=== PATIENT | female | born 1985 | race Caucasian/White ===

== ENCOUNTER 2016-09-28 14:03 | Emergency (ER) | payer OTHER ==
[2016-09-28 15:13] VITALS: BP 132/77
--- NOTE | 2016-09-28 17:28 | UC ---
UC General HPI - HPI Summary HPI Summary: ONE WEEK COLD SYMPTOMS HAD STOMACH BUG, NOW FEELING CONGESTION, MILD COUGH AND OCCASIONAL NAUSEA. - History of Current Complaint Chief Complaint: UCRespiratory Stated Complaint: SORE THROAT NAUSEA CONGESTION Time Seen by Provider: 09/28/16 14:58 Hx Obtained From: Patient Onset/Duration: Lasting Weeks, Still Present Onset Severity: Moderate Current Severity: Moderate Pain Intensity: 8 Associated Signs & Symptoms: Positive: Cough, Nausea - Allergy/Home Medications Allergies/Adverse Reactions: Allergies Allergy/AdvReac Type Severity Reaction Status Date / Time Sulfa Antibiotics Allergy FACES Verified 09/28/16 15:13 SWELLS UP PMH/Surg Hx/FS Hx/Imm Hx Previously Healthy: Yes Endocrine History Of: Denies: Diabetes, Thyroid Disease Cardiovascular History Of: Denies: Cardiac Disorders, Hypertension, Pacemaker/ICD Respiratory History Of: Denies: COPD, Asthma GI/ History Of: Denies: Ulcer, Renal Disease Neurological History Of: Reports: Migraine - ost neck injury Jun 2011 - Surgical History Surgical History: Yes Surgery Procedure, Year, and Place: Tonsillectomy - Family History Known Family History: Positive: None Negative: Respiratory Disease - Social History Occupation: Employed Full-time Lives: With Family Alcohol Use: None Substance Use Type: None Smoking Status (MU): Former Smoker Type: Cigarettes Amount Used/How Often: 1/2 PPD Have You Smoked in the Last Year: Yes Review of Systems Constitutional: Negative Skin: Negative Eyes: Negative ENT: Sore Throat, Ear Ache, Nasal Discharge Respiratory: Cough Cardiovascular: Negative Gastrointestinal: Other - NAUSEA Genitourinary: Negative Motor: Negative Neurovascular: Negative Musculoskeletal: Negative Neurological: Negative Psychological: Negative All Other Systems Reviewed And Are Negative: Yes Physical Exam Triage Information Reviewed: Yes Appearance: No Pain Distress, Well-Nourished, Ill-Appearing - MILD Vital Signs: Initial Vital Signs Temp 98.5 F 09/28/16 15:07 Pulse 88 09/28/16 15:07 Resp 20 09/28/16 15:07 BP 132/77 09/28/16 15:07 Pulse Ox 98 09/28/16 15:07 Vital Signs Reviewed: Yes Eye Exam: Normal Eyes: Positive: Conjunctiva Clear ENT: Positive: Hearing grossly normal, TMs normal Dental Exam: Normal Neck exam: Normal Neck: Positive: Supple, Nontender, No Lymphadenopathy Respiratory Exam: Normal Respiratory: Positive: Chest non-tender, Lungs clear, Normal breath sounds, No respiratory distress, No accessory muscle use Cardiovascular Exam: Normal Cardiovascular: Positive: RRR, No Murmur, Pulses Normal, Brisk Capillary Refill Abdominal Exam: Normal Abdomen Description: Positive: Nontender, No Organomegaly Musculoskeletal Exam: Normal Musculoskeletal: Positive: Strength Intact, ROM Intact Neurological Exam: Normal Psychological Exam: Normal Skin Exam: Normal Course/Dx - Differential Dx - Multi-Symptom Differential Diagnoses: Urinary Tract Infection, Other - INFLUENZA Provider Diagnoses: GASTROENTERITIS Discharge - Discharge Plan Condition: Stable Disposition: HOME Prescriptions: Ondansetron ODT TAB* [Zofran Odt TAB*] 4 mg PO Q8H PRN #6 tab.odt PRN Reason: Vomiting Patient Education Materials: Gastroenteritis (ED) Forms: *Work Release Referrals: Sandra New PA [Primary Care Provider] -
== END 2016-09-28 17:10 | disposition home or self-care (01) ==
LOC: UCEAST 14:03
DX: K52.9 Noninfective gastroenteritis and colitis, unspecified (principal); R11.0 Nausea; Z32.02 Encounter for pregnancy test, result negative; Z88.2 Allergy status to sulfonamides; Z87.891 Personal history of nicotine dependence
CPT/HCPCS: 81002; 81025; 87086; 87502; 99212; G0463

== ENCOUNTER 2016-11-18 19:07 | Emergency (ER) | payer OTHER ==
--- NOTE | 2016-11-18 21:14 | UC ---
UC Dental HPI - HPI Summary HPI Summary: complaint of dental pain tooth in left upper jaw is painful this afternoon the pain increased and her cheek started to swell has appt to have teeth pulled 11/23/16 denies fever and headache took some ibuprofen at 6:30-600 mg without relief - History of Current Complaint Chief Complaint: UCDentalProblem Stated Complaint: TOOTH PAIN Time Seen by Provider: 11/18/16 21:09 Hx Obtained From: Patient Hx Last Menstrual Period: nexplanon - does not get menses - Allergies/Home Medications Allergies/Adverse Reactions: Allergies Allergy/AdvReac Type Severity Reaction Status Date / Time Sulfa Antibiotics Allergy FACES Verified 09/28/16 15:13 SWELLS UP Home Medications: Home Medications Ibuprofen [Advil] 600 mg PO 11/18/16 [History] PMH/Surg Hx/FS Hx/Imm Hx Previously Healthy: Yes Endocrine History Of: Denies: Diabetes, Thyroid Disease Cardiovascular History Of: Denies: Cardiac Disorders, Hypertension, Pacemaker/ICD Respiratory History Of: Denies: COPD, Asthma GI/ History Of: Denies: Ulcer, Renal Disease Neurological History Of: Reports: Migraine - ost neck injury Jun 2011 - Surgical History Surgical History: Yes Surgery Procedure, Year, and Place: Tonsillectomy - Family History Known Family History: Positive: None Negative: Cardiac Disease, Hypertension, Respiratory Disease - Social History Lives: With Family Alcohol Use: None Substance Use Type: None Smoking Status (MU): Light Every Day Tobacco Smoker Type: Cigarettes Amount Used/How Often: 1/2 PPD Have You Smoked in the Last Year: Yes Cessation Counseling: Patient Advised to Stop Review of Systems Constitutional: Negative Skin: Negative Eyes: Negative ENT: Dental Pain Respiratory: Negative Cardiovascular: Negative Gastrointestinal: Negative Genitourinary: Negative Motor: Negative Neurovascular: Negative Musculoskeletal: Negative Neurological: Negative Psychological: Negative All Other Systems Reviewed And Are Negative: Yes Physical Exam Triage Information Reviewed: Yes Appearance: Well-Nourished, Pain Distress, Obese Vital Signs: Initial Vital Signs Temp 98.7 F 11/18/16 19:48 Pulse 98 11/18/16 19:48 Resp 18 11/18/16 19:48 BP 126/80 11/18/16 19:48 Pulse Ox 100 11/18/16 19:48 Vital Signs Reviewed: Yes Eyes: Positive: Conjunctiva Clear ENT: Positive: Pharynx normal, TMs normal. Negative: Nasal congestion Dental: Positive: Gross Decay/Caries @ - throughout, Abscess @ - tooth 10 Neck: Positive: No Lymphadenopathy Respiratory: Positive: Lungs clear, Normal breath sounds, No respiratory distress Cardiovascular: Positive: RRR, No Murmur Abdomen Description: Positive: Nontender, Soft Bowel Sounds: Positive: Present Musculoskeletal: Positive: No Edema Neurological: Positive: Alert Psychological Exam: Normal Skin Exam: Normal Dental Complaint Course/Dx - Differential Dx/Diagnosis Differential Diagnosis/Dx: Dental Abscess, Dental Caries Provider Diagnoses: dental abscess- tooth 10 Discharge - Discharge Plan Condition: Stable Disposition: HOME Prescriptions: Amoxicillin/Clavulanate TAB* [Augmentin TAB 875*] 875 mg PO BID #20 tab Patient Education Materials: Dental Abscess (ED) Referrals: Sandra New PA [Primary Care Provider] - Additional Instructions: Your blood pressure is pre-hypertensive reading. Please contact your primary care provider within 1 day -4 weeks for further evaluation. DENTAL ABSCESS What is a Dental Abscess? A dental abscess is an infection around the root of a tooth or in the gums or jawbone. The infection causes pus to collect, and a lump can appear. Dental abscesses often get their start when bacteria invade a decayed tooth; the decay may then travel to the gums or jawbone. Decay can also begin in the mouth when teeth are not brushed or flossed properly. Symptoms Might Include: In general, you'll start to have a fever, redness and swelling of the gums or cheek. If you have a lump it may feel hot. Other signs include tooth or mouth pain, a loose tooth, or not being able to close your mouth all the way. If the abscess spreads, your face, neck, or chest may swell. Treatment Recommendations: Rinse your mouth with warm water every hour or as needed to ease the pain. This will help draw the infection from the abscess. For pain, you may take non-prescription medicines such as acetaminophen (Tylenol ) or ibuprofen (Motrin, Advil). To help ease the pain, do not chew on the sore side for at least 2 days; you may need to limit yourself to a liquid diet. Putting ice on your face over the affected area may also relieve the pain. Apply the ice for 10 to 20 minutes out of every hour. Do not leave the ice on for long periods or you can get frostbite. If the abscess is drained, there may be a small hole or drain. Keep the area free of food by rinsing with water after eating. You'll need to return or be seen by a dentist to have the drain removed. The healthcare provider may have prescribed an antibiotic medicine. The medicine should be taken until it is completely gone, even if you are feeling better. If you stop taking the medicine early, the infection may not be completely gone, and the medication may not work the next time. To prevent abscesses: [place] regularly with a toothbrush recommended by your dentist. Floss daily and use a fluoride mouthwash, toothpaste, tablets, or supplements as instructed by your dentist or dental hygienist. Reduce the amount of sugar in your diet. Call Your Doctor or Return Here IF: You have a high temperature Your pain becomes worse You have any new symptoms or problems that may be due to the medicine you are taking You have new or increased swelling in your face, jaw, cheek, eye, or neck You have any other new symptoms that worry you
[2016-11-18] MEDS ORDERED: Amoxicillin/Clavulanate TAB* 875 MG PO ONE (21:16)
[2016-11-18] MEDS ORDERED: HYDROcodone/ACETAMIN 5-325 MG* 1 TAB PO ONE (21:18)
[2016-11-18 21:52] VITALS: BP 134/66
== END 2016-11-18 21:54 | disposition home or self-care (01) ==
LOC: UCEAST 19:07
DX: G43.909 Migraine, unspecified, not intractable, without status migrainosus (principal); K04.7 Periapical abscess without sinus; F17.210 Nicotine dependence, cigarettes, uncomplicated; E66.9 Obesity, unspecified; Z88.2 Allergy status to sulfonamides
CPT/HCPCS: 99212; A9270-GY; G0463

== ENCOUNTER 2017-05-29 21:12 | Emergency (ER) | payer OTHER ==
[2017-05-29 21:18] VITALS: BP 134/88
--- NOTE | 2017-05-29 21:47 | UC ---
Lower Extremity/Ankle HPI - HPI Summary HPI Summary: While walking up the stairs tonight pt felt sudden pop with pain in R posterior calf. Now walking with a limp. No prior injury or surgery on that area. - History of Current Complaint Hx Obtained From: Patient Hx Last Menstrual Period: few years ago ?: No Onset/Duration: Sudden Onset Severity Initially: Moderate Severity Currently: Moderate Aggravating Factor(s): Standing, Ambulation Alleviating Factor(s): Rest Able to Bear Weight: Yes <Aicha Tatum - Last Filed: 05/29/17 21:42> <Meg Estrella - Last Filed: 05/30/17 19:34> - History of Current Complaint Chief Complaint: UCLowerExtremity Stated Complaint: CALF INJURY Time Seen by Provider: 05/29/17 21:24 - Allergies/Home Medications Allergies/Adverse Reactions: Allergies Allergy/AdvReac Type Severity Reaction Status Date / Time Sulfa Antibiotics Allergy FACES Verified 05/29/17 21:19 SWELLS UP Home Medications: Home Medications Varenicline (NF) [Chantix 1 MG TAB (NF)] 1 tab PO BID 05/29/17 [History Confirmed 05/29/17] PMH/Surg Hx/FS Hx/Imm Hx Previously Healthy: Yes - Surgical History Surgical History: Yes Surgery Procedure, Year, and Place: Tonsillectomy - Family History Known Family History: Positive: None Negative: Cardiac Disease, Hypertension, Respiratory Disease - Social History Occupation: Employed Full-time - [employer] – [place] Alcohol Use: None Substance Use Type: None Smoking Status (MU): Light Every Day Tobacco Smoker Type: Cigarettes Amount Used/How Often: 1/2 PPD Have You Smoked in the Last Year: Yes <Aicha Tatum - Last Filed: 05/29/17 21:42> Review of Systems Constitutional: Negative Skin: Negative Eyes: Negative ENT: Negative Respiratory: Negative Cardiovascular: Negative Gastrointestinal: Negative Genitourinary: Negative Motor: Negative Neurovascular: Negative Musculoskeletal: Myalgia - R calf Neurological: Negative Psychological: Negative Is Patient Immunocompromised?: No All Other Systems Reviewed And Are Negative: Yes <Aicha Tatum - Last Filed: 05/29/17 21:42> Physical Exam Triage Information Reviewed: Yes Appearance: Well-Appearing, Obese Vital Signs: Initial Vital Signs Temp 97.5 F 05/29/17 21:16 Pulse 112 05/29/17 21:16 Resp 18 05/29/17 21:16 BP 134/88 05/29/17 21:16 Pulse Ox 99 05/29/17 21:16 Vital Signs Reviewed: Yes Eye Exam: Normal, Other - PERRL Eyes: Positive: Conjunctiva Clear ENT Exam: Normal ENT: Positive: Normal ENT inspection, Hearing grossly normal, Pharynx normal, TMs normal Neck exam: Normal Respiratory Exam: Normal Respiratory: Positive: Chest non-tender, Lungs clear, Normal breath sounds, No respiratory distress, No accessory muscle use Cardiovascular Exam: Normal Cardiovascular: Positive: RRR, No Murmur Musculoskeletal Exam: Other - Rodriguez test negative for achilles injury Musculoskeletal: Positive: ROM Intact - able to do circles with R foot, Strength Limited @ - R calf Neurological Exam: Normal Psychological Exam: Normal Skin Exam: Normal <Aicha Tatum - Last Filed: 05/29/17 21:42> Vital Signs: Initial Vital Signs Temp 97.5 F 05/29/17 21:16 Pulse 112 05/29/17 21:16 Resp 18 05/29/17 21:16 BP 134/88 05/29/17 21:16 Pulse Ox 99 05/29/17 21:16 <Meg Estrella - Last Filed: 05/30/17 19:34> Lower Extremity Course/Dx - Differential Dx/Diagnosis Provider Diagnoses: R calf strain <Aicha Tatum - Last Filed: 05/29/17 21:42> Discharge <Aicha Tatum - Last Filed: 05/29/17 21:42> <Meg Estrella - Last Filed: 05/30/17 19:34> - Discharge Plan Condition: Stable Disposition: HOME Patient Education Materials: Muscle Strain (ED) Forms: *Work Release Referrals: Sandra New PA [Primary Care Provider] - 1 Week Additional Instructions: Use ice, elevation, and ibuprofen as needed for pain control. Use crutches so that you can move around without significant pain. Mostly these injuries need lots of time to heal. Your achilles tendon was intact on exam tonight. I do recommend you see your PCP for a recheck to make sure this is still the case in a week. Attestation Statement User Type: Provider - I was available for consult. This patient was seen by the DESMOND. The patient was not presented to, seen by, or examined by me. -Jane <Meg Estrella - Last Filed: 05/30/17 19:34>
== END 2017-05-29 21:55 | disposition home or self-care (01) ==
LOC: UCEAST 21:12
DX: S86.811A Strain of other muscle(s) and tendon(s) at lower leg level, right leg, initial encounter (principal); F17.210 Nicotine dependence, cigarettes, uncomplicated; Z88.2 Allergy status to sulfonamides; X58.XXXA Exposure to other specified factors, initial encounter
CPT/HCPCS: 99213; G0463

== ENCOUNTER 2017-09-07 21:30 | Emergency (ER) | payer OTHER ==
[2017-09-07 21:37] VITALS: BP 130/91
--- NOTE | 2017-09-07 21:46 | UC ---
Respiratory Complaint HPI - HPI Summary HPI Summary: Pt presents with dry cough and sinus pain/pressure/congestion intermittently since the beginning of july. She tells me that she has been taking dayquill/ nyquill, mucinex, and tylenol cold and flu with good relief at times, but her symptoms will return a few days later. She denies fever, chills, SOB, chest pain , abdominal pain, n/v/d/c, or body aches. She is still smoking daily. - History of Current Complaint Chief Complaint: UCRespiratory Stated Complaint: COUGH Time Seen by Provider: 09/07/17 21:38 Hx Obtained From: Patient Hx Last Menstrual Period: 5 yrs Onset/Duration: Gradual Onset Timing: Intermittent Episodes Pain Intensity: 0 Character: Cough: Nonproductive - Allergies/Home Medications Allergies/Adverse Reactions: Allergies Allergy/AdvReac Type Severity Reaction Status Date / Time Sulfa Antibiotics Allergy FACES Verified 09/07/17 21:37 SWELLS UP PMH/Surg Hx/FS Hx/Imm Hx Previously Healthy: Yes - Surgical History Surgical History: Yes Surgery Procedure, Year, and Place: Tonsillectomy - Family History Known Family History: Positive: None Negative: Cardiac Disease, Hypertension, Respiratory Disease - Social History Occupation: Employed Full-time Lives: Alone Alcohol Use: None Substance Use Type: None Smoking Status (MU): Light Every Day Tobacco Smoker Type: Cigarettes Amount Used/How Often: 1/2 PPD Have You Smoked in the Last Year: Yes Cessation Counseling: Counseled 3+Min - 10 Min Review of Systems Constitutional: Negative Skin: Negative Eyes: Negative ENT: Nasal Discharge, Sinus Congestion, Sinus Pain/Tenderness Respiratory: Cough Cardiovascular: Negative Gastrointestinal: Negative Neurovascular: Negative Musculoskeletal: Negative Neurological: Negative Psychological: Negative All Other Systems Reviewed And Are Negative: Yes Physical Exam Triage Information Reviewed: Yes Appearance: Well-Appearing, No Pain Distress, Well-Nourished Vital Signs: Initial Vital Signs Temp 97.9 F 09/07/17 21:34 Pulse 90 09/07/17 21:34 Resp 12 09/07/17 21:34 BP 130/91 09/07/17 21:34 Pulse Ox 99 09/07/17 21:34 Vital Signs Reviewed: Yes Eyes: Positive: Conjunctiva Clear. Negative: Conjunctiva Inflamed, Discharge ENT: Positive: Hearing grossly normal, Pharynx normal, Nasal congestion, Nasal drainage, TMs normal, Sinus tenderness, Uvula midline. Negative: Pharyngeal erythema, TM bulging, TM dull, TM red, Tonsillar swelling, Tonsillar exudate, Hoarse voice Neck: Positive: Supple, Nontender, No Lymphadenopathy Respiratory: Positive: Chest non-tender, Lungs clear, No respiratory distress, No accessory muscle use, Wheezing - Scant throughout. Negative: Crackles Cardiovascular: Positive: RRR, No Murmur, Pulses Normal Neurological: Positive: Alert Psychological: Positive: Age Appropriate Behavior Skin: Negative: rashes UC Diagnostic Evaluation - Laboratory O2 Sat by Pulse Oximetry: 99 Respiratory Course/Dx - Course Course Of Treatment: Bronchitis. Sinusitis - Differential Dx/Diagnosis Provider Diagnoses: Bronchitis. Sinusitis Discharge - Discharge Plan Condition: Stable Disposition: HOME Prescriptions: Albuterol HFA INHALER* [Ventolin HFA Inhaler*] 1 - 2 puff INH Q6H PRN #1 mdi PRN Reason: Cough Amoxicillin PO (*) [Amoxicillin 500 MG CAP*] 500 mg PO Q12H #20 cap predniSONE TAB* [Deltasone TAB*] 20 mg PO BID #10 tab Patient Education Materials: Sinusitis (ED), Acute Bronchitis (ED) Referrals: Sandra New PA [Primary Care Provider] - Additional Instructions: If you develop a fever, shortness of breath, chest pain, new or worsening symptoms - please call your PCP or go to the ED. Your blood pressure was high at todays visit. Please see your primary provider within 4 weeks for recheck and re-evaluation.
== END 2017-09-07 21:50 | disposition home or self-care (01) ==
LOC: UCEAST 21:30
DX: J40 Bronchitis, not specified as acute or chronic (principal); J32.9 Chronic sinusitis, unspecified; F17.210 Nicotine dependence, cigarettes, uncomplicated; Z88.2 Allergy status to sulfonamides
CPT/HCPCS: 99212; G0463

== ENCOUNTER 2018-02-07 14:11 | Emergency (ER) | payer OTHER ==
[2018-02-07] MEDS ORDERED: Clindamycin 600 MG IVPREMIX(* 600 MG/50 ML SDV IV ONE (14:59)
[2018-02-07] MEDS ORDERED: Morphine VIAL* 4 MG/ML VIAL (1 ml vial) IV ONE ×2 (15:12→17:21)
--- NOTE | 2018-02-07 15:19 | ED ---
Throat Pain/Nasal Congestion - HPI Summary HPI Summary: 32-year-old female presents with right-sided facial pain for the past 3 days. She states that she was having ear pain and then started to radiate down her jaw. She was seen [facility] and given antibiotic drops and amoxicillin. She's been taking the antibiotics but the area swelling is continuing to increase. She denies any dental pain. She is unable to open her mouth all the way. No fevers. No chest pain or shortness of breath. Has ibuprofen for pain. no history of dental infections. - History of Current Complaint Chief Complaint: EDDentalPain Time Seen by Provider: 02/07/18 14:58 - Allergies/Home Medications Allergies/Adverse Reactions: Allergies Allergy/AdvReac Type Severity Reaction Status Date / Time Sulfa (Sulfonamide Allergy Anaphylatic Verified 02/07/18 14:51 Antibiotics) Shock Home Medications: Home Medications Ibuprofen TAB* [Advil TAB*] 200 mg PO Q6H PRN 02/07/18 [History Confirmed ] PMH/Surg Hx/FS Hx/Imm Hx Endocrine/Hematology History: Denies: Hx Diabetes, Hx Thyroid Disease Cardiovascular History: Denies: Hx Hypertension, Hx Pacemaker/ICD Respiratory History: Denies: Hx Asthma, Hx Chronic Obstructive Pulmonary Disease (COPD) GI History: Denies: Hx Ulcer History: Denies: Hx Renal Disease Sensory History: Denies: Hx Hearing Aid Neurological History: Reports: Hx Migraine - ost neck injury Jun 2011 Psychiatric History: Denies: Hx Panic Disorder - Surgical History Surgery Procedure, Year, and Place: Tonsillectomy Infectious Disease History: No Infectious Disease History: Denies: Hx Clostridium Difficile, Hx Hepatitis, Hx Human Immunodeficiency Virus (HIV), Hx of Known/Suspected MRSA, Hx Shingles, Hx Tuberculosis, Hx Known/ Suspected VRE, Hx Known/Suspected VRSA, History Other Infectious Disease, Traveled Outside the [place] in Last 30 Days - Family History Known Family History: Positive: None Negative: Cardiac Disease, Hypertension, Respiratory Disease - Social History Alcohol Use: None Substance Use Type: Reports: None Smoking Status (MU): Light Every Day Tobacco Smoker Type: Cigarettes Amount Used/How Often: 1/2 PPD Have You Smoked in the Last Year: Yes Review of Systems Negative: Fever Positive: Dental Pain, Other - facial swelling Negative: Chest Pain Negative: Shortness Of Breath All Other Systems Reviewed And Are Negative: Yes Physical Exam Triage Information Reviewed: Yes Vital Signs On Initial Exam: Initial Vitals Temp Pulse Resp BP Pulse Ox 96.8 F 97 20 148/87 99 02/07/18 14:47 02/07/18 14:47 02/07/18 14:47 02/07/18 14:47 02/07/18 14:47 Vital Signs Reviewed: Yes Appearance: Positive: Well-Appearing Skin: Positive: Warm, Dry Head/Face: Positive: Normal Head/Face Inspection Eyes: Positive: Normal, EOMI, LINDA, Conjunctiva Clear ENT: Positive: Trismus, Other - tm canal erythematous. Negative: TM bulging, TM red, Muffled voice Dental: Positive: Other - gums swollen right lower jaw Neck: Positive: Tenderness @ - cervical, Enlarged Nodes @ - cervical Respiratory/Lung Sounds: Positive: Clear to Auscultation, Breath Sounds Present Cardiovascular: Positive: Normal, RRR Abdomen Description: Positive: Nontender, Soft Bowel Sounds: Positive: Present Musculoskeletal: Positive: Normal Neurological: Positive: Normal Psychiatric: Positive: Normal Diagnostics - Vital Signs Vital Signs Temp Pulse Resp BP Pulse Ox 02/07/18 14:47 96.8 F 97 20 148/87 99 - Laboratory Result Diagrams: 02/07/18 15:37 02/07/18 15:37 Lab Statement: Any lab studies that have been ordered have been reviewed, and results considered in the medical decision making process. - CT abd CT Interpretation: Positive (See Comments) - IMPRESSION: PRESUMED INFLAMMATORY RESPONSE RIGHT RIGHT MASSETER MUSCLE WITH MILD RIGHT-SIDED REACTIVE LYMPHADENOPATHY. CT Interpretation Completed By: Radiologist EENT Course/Dx - Course Course Of Treatment: 32-year-old female presents with right-sided facial pain for the past 3 days. She states that she was having ear pain and then started to radiate down her jaw. She was seen at [facility] and given antibiotic drops and amoxicillin. She's been taking the antibiotics but the area swelling is continuing to increase. She denies any dental pain. She is unable to open her mouth all the way. No fevers. No chest pain or shortness of breath. Has ibuprofen for pain. no history of dental infections. On exam has edema on the right side of face. Positive trismus. Edema noted to right lower gumline. wbc 14. lactic normal. CT shows presumpative inflamatory. will have switch to clindamycin. patient understand and agrees with plan. - Differential Diagnoses Differential Diagnoses: Dental Abscess, Dental Caries, Fractured Tooth - Diagnoses Provider Diagnoses: Dental abscess Discharge - Sign-Out/Discharge Documenting (check all that apply): Discharge/Admit/Transfer - Discharge Plan Condition: Good Disposition: HOME Prescriptions: Clindamycin Cap(NF) [Clindamycin Cap 300 mg Cap(NF)] 300 mg PO TID #29 cap oxyCODONE/Acetamin 5/325 MG* [Percocet 5/325 TAB*] 1 tab PO Q6H PRN #20 tab MDD 4 PRN Reason: Pain Patient Education Materials: Dental Abscess (ED) Referrals: Troy ULRICH,Abelardo Bowman [Primary Care Provider] - Additional Instructions: Take clindamycin three times a day for 10 days Take ibuprofen every 6 hours for pain as needed, use narcotic for break through pain every 6 hours Avoid hard, crunchy food until seen by dentist Return to ED if develop fever, shortness of breath, pain with eye movement or swelling around eye Follow up with dentist as soon as possible - Billing Disposition and Condition Condition: GOOD Disposition: Home
[2018-02-07 15:49] LABS: ABS Basophils 0.1 10^3/ul (0-0.2); ABS Eosinophils 0.2 10^3/ul (0-0.6); ABS Lymphocytes 2.9 10^3/ul (1.0-4.8); ABS Monocytes 0.9 10^3/ul (0-0.8); ABS Neutrophils 10.1 10^3/ul (1.5-7.7); ABS Nucleated RBC 0 10^3/ul; Eosinophil % 1.1 % (0-6); Hematocrit 38 % (35-47); Lymphocyte % 20.5 % (25-47); Mean Corpuscular HGB Conc 34 g/dl (31-36); Mean Corpuscular Hemoglobin 30 pg (27-31); Mean Corpuscular Volume 89 fL (80-97); Nucleated Red Blood Cells % 0.1; Platelet Count 284 10^3/ul (150-450); Red Blood Count 4.26 10^6/ul (4.00-5.40); Red Cell Distribution Width 14 % (10.5-15); White Blood Count 14.1 10^3/ul (3.5-10.8)
[2018-02-07] MEDS ORDERED: Ketorolac INJ* 30 MG/ML 1 ML VIAL IV PUSH ONE (16:08)
[2018-02-07 16:31] LABS: EGFR Non-African American 147.3 (>60)
[2018-02-07] MEDS ORDERED: Iohexol 300* (CONTRAST) 10 ML SDV IV ONE (16:36)
--- NOTE | 2018-02-07 17:11 | RAD ---
INDICATION: Right maxillary swelling COMPARISON: None TECHNIQUE: Axial source images were acquired from the vertex of the mandible through the orbits. Coronal and sagittal reconstructed images were acquired. 76 mL Omnipaque 300 was injected FINDINGS: Bones: There is no acute facial bone fracture. There are no osseous changes to suggest osteomyelitis Orbits: The globes and intraconal structures appear intact. The optic nerves are symmetric. Extraocular muscles appear normal. There is no intraconal inflammatory change or retrobulbar mass.. Paranasal sinuses: The paranasal sinuses are clear. Brain: There are no acute abnormalities of the visualized brain parenchyma. Soft tissues: There is enlargement of the right masseter muscle relative to left likely related to inflammatory response in light of the clinical history. There is fluid tracking along the periphery of the masseter muscle near Stensen's duct. There is minor subcutaneous edema in the right maxillary region and there is minor skin induration. There are no additional soft tissue abnormalities. There are asymmetric submandibular lymph nodes. One of these lymph nodes is enlarged measuring 1.3 cm in short axis. This is likely reactive. There is also mild asymmetric lymph nodes in the right submental space. Other: None The visualized soft tissue elements about the neck appear normal. IMPRESSION: PRESUMED INFLAMMATORY RESPONSE RIGHT RIGHT MASSETER MUSCLE WITH MILD RIGHT-SIDED REACTIVE LYMPHADENOPATHY.
[2018-02-07 17:50] VITALS: BP 142/112
== END 2018-02-07 17:49 | disposition home or self-care (01) ==
LOC: ED 14:11
DX: K04.7 Periapical abscess without sinus (principal); K08.89 Other specified disorders of teeth and supporting structures; F17.210 Nicotine dependence, cigarettes, uncomplicated
CPT/HCPCS: 36415; 70487; 80053; 83605; 84702; 85025; 87040; 96365; 96375; 99282; J1885; J2270; Q9967

== ENCOUNTER 2018-05-09 20:30 | Emergency (ER) | payer OTHER ==
--- OUTSIDE RECORDS SUMMARY | 2018-05-09 20:35 | XMS REPORT | Continuity of Care Document ---
:1985 External Reference #:[id number] Author Name Jazlny Cedillo O.D. Address [address] [facility] [place] [address] Care Team Providers Name Role Phone Abelardo Simmons M.D. Primary Care Physician Unavailable Payers Type Date Identification Numbers Payment Provider Subscriber Policy Number: [id number] [employer] Ppo/Pos/Epo/Nap Jennifer Landa PayID: [id number] [address] [place] [address] Advance Directives Description No Information Available Problems Date Description Provider Status Onset: 04/27/2018 Visual disturbance Jazlyn Cedillo O.D. Active Family History Date Family Member(s) Problem(s) Comments Father No Current Problems Mother No Current Problems Social History Type Date Description Comments Sex Unknown Marital Status Legal Status: Domestic Partner Occupation [employer] Work Status Full-Time Employment ETOH Use Denies alcohol use Tobacco Use Start: Unknown Light tobacco smoker (10 or fewer 5 day cigarettes/day) Smoking Status Reviewed: 04/27/18 Light tobacco smoker (10 or fewer 5 day cigarettes/day) Allergies, Adverse Reactions, Alerts Date Description Reaction Status Severity Comments 04/27/2018 Sulfa Antibiotics Active Medications Medication Date Status Form Strength Qnty SIG Indications Ordering Provider Ibuprofen 200 Active Tablets 200mg Unknown Immunizations Description No Information Available Vital Signs Description No Information Available Results Description No Information Available Procedures Description No Information Available Encounters Description No Information Available Plan of Treatment 04/27/2018 - Jazlyn Cedillo O.D.H53.8 Other visual disturbancesFollow up:4 DAY RECHECK WITH GZ AND VF 30-2
--- OUTSIDE RECORDS SUMMARY | 2018-05-09 20:35 | XMS REPORT | Continuity of Care Document ---
:1985 External Reference #:[id number] Author Name Delfino Perera M.D. Address [address] [facility] [place] [address] Care Team Providers Name Role Phone Abelardo Simmons M.D. Primary Care Physician Unavailable Payers Type Date Identification Numbers Payment Provider Subscriber Policy Number: [id number] [employer] Ppo/Pos/Epo/Nap Jennifer Landa PayID: [id number] [address] [place] [address] Advance Directives Description No Information Available Problems Date Description Provider Status Onset: 04/27/2018 Visual disturbance Jazlyn Cedillo O.D. Active Onset: 05/01/2018 Refractory migraine without aura Delfino Perera M.D. Active Family History Date Family Member(s) Problem(s) Comments Father No Current Problems Mother No Current Problems Social History Type Date Description Comments Sex Unknown Marital Status Legal Status: Domestic Partner Occupation [employer] Work Status Full-Time Employment ETOH Use Denies alcohol use Tobacco Use Start: Unknown Light tobacco smoker (10 or fewer 5 day cigarettes/day) Smoking Status Reviewed: 05/01/18 Light tobacco smoker (10 or fewer 5 day cigarettes/day) Allergies, Adverse Reactions, Alerts Date Description Reaction Status Severity Comments 04/27/2018 Sulfa Antibiotics Active Medications Medication Date Status Form Strength Qnty SIG Indications Ordering Provider No Active 05/01/2018 Active Unknown Medications Ibuprofen 200 Hx Tablets 200mg Unknown - 05/01/2018 Immunizations Description No Information Available Vital Signs Description No Information Available Results Description No Information Available Procedures Date Code Description Status 04/27/2018 31669 Scanning Computerized Opthalmic Diagnostic Posterior Seg Completed Retina 04/27/2018 99219 New Patient Comprehensive Exam Completed Encounters Description No Information Available Plan of Treatment 05/01/2018 - Delfino Perera M.D.H53.8 Other visual disturbancesComments: Smoking can increase the risk of developing or worsening any eye related disease , as well as affect your overall health. If you are a smoker, we strongly recommend that you quit.If you are not a smoker, we strongly recommend that you do not start. I WILL CHECK ON YOU AGAIN EARLY NEXT WEEK. IF YOU THINK THERE IS ANY WORSENING OF YOUR SYMPTOMS, CALL THE OFFICEFollow up:1 Week Follow Up PUPIL [id number] Migraine without aura, intractable, with status migrainosus
--- OUTSIDE RECORDS SUMMARY | 2018-05-09 20:35 | XMS REPORT | Continuity of Care Document ---
:1985 External Reference #:[id number] Author Name Delfino Perera M.D. Address [address] [facility] [place] [address] Care Team Providers Name Role Phone Abelardo Simmons M.D. Primary Care Physician Unavailable Payers Type Date Identification Numbers Payment Provider Subscriber Policy Number: [id number] [employer] Ppo/Pos/Epo/Nap Jennifer Landa PayID: [id number] [address] [place] [address] Advance Directives Description No Information Available Problems Date Description Provider Status Onset: 04/27/2018 Visual disturbance Jazlyn Cedillo O.D. Active Onset: 05/08/2018 Acute retrobulbar neuritis Delfino Perera M.D. Active Onset: 05/01/2018 Refractory migraine without aura Delfino Perera M.D. Active Family History Date Family Member(s) Problem(s) Comments Father No Current Problems Mother No Current Problems Social History Type Date Description Comments Sex Unknown Marital Status Legal Status: Domestic Partner Occupation [employer] Work Status Full-Time Employment ETOH Use Denies alcohol use Tobacco Use Start: Unknown Light tobacco smoker (10 or fewer 5 day cigarettes/day) Smoking Status Reviewed: 05/08/18 Light tobacco smoker (10 or fewer 5 [...] Information Available Procedures Date Code Description Status 05/01/2018 17959 Visual Field Exam Extended Completed 05/01/2018 06889 Est Patient Intermediate Exam Completed 04/27/2018 68634 Scanning Computerized Opthalmic Diagnostic Posterior Seg Completed Retina 04/27/2018 01560 New Patient Comprehensive Exam Completed Encounters Description No Information Available Plan of Treatment 05/08/2018 - Delfino Perera M.D.H46.11 Retrobulbar neuritis, right eyeNew Xrays:MRI Brain W/Wo Contrast, Ordered: 05/08/18Comments:Smoking can increase the risk of developing or worsening any eye related disease, as well as affect your overall health. If you are a smoker, we strongly recommend that you quit.If you are not a smoker, we strongly recommend that you do not start. WILL ORDER AN MRI TO LOOK INTO YOUR RIGHT EYE SYMPTOMSFollow up:3 Week Follow Up PUPIL CHECK At your next visit, we are not planning to dilate your eyes. However, if you have any changes in your vision or new symptoms, there are certain situations that require us to dilate your eyes. If Dr. Perera requests any additional testing, that may require extra time. Ifyou have any questions before your next appointment, please call our office at [phone].V33.8 Other visual disturbancesComments:Smoking can increase the risk of developing or worsening any eye related disease, as well as affect your overall health. If you are a smoker, we strongly recommend that you quit.If you are not a smoker, we strongly recommend that you do not start.G43.011 Migraine without aura, intractable, with status migrainosus
[2018-05-09 20:44] VITALS: BP 147/99
[2018-05-09] MEDS ORDERED: Ondansetron ODT TAB* 4 MG PO ONE (21:17)
--- NOTE | 2018-05-09 21:27 | UC ---
Respiratory Complaint HPI - HPI Summary HPI Summary: 4 DAYS OF NAUSEA, SEVERAL EPISODES OF EMESIS, COUGH, CONGESTION, [place], BODY ACHES. NO FEVER. - History of Current Complaint Chief Complaint: UCRespiratory Stated Complaint: THROAT PAIN Time Seen by Provider: 05/09/18 21:09 Hx Obtained From: Patient Hx Last Menstrual Period: NEXPLANON Onset/Duration: Gradual Onset, Lasting Days, Still Present Timing: Constant Severity Initially: Moderate Severity Currently: Moderate Pain Intensity: 4 Pain Scale Used: 0-10 Numeric Character: Cough: Nonproductive Aggravating Factors: Nothing Alleviating Factors: Nothing Associated Signs And Symptoms: Positive: URI, Nasal Congestion. Negative: Fever - Allergies/Home Medications Allergies/Adverse Reactions: Allergies Allergy/AdvReac Type Severity Reaction Status Date / Time Sulfa (Sulfonamide Allergy Anaphylatic Verified 05/09/18 20:44 Antibiotics) Shock Home Medications: Home Medications guaiFENesin ER TAB [Mucinex*] 600 mg PO ONCE PRN 05/09/18 [History Confirmed ] PMH/Surg Hx/FS Hx/Imm Hx Previously Healthy: Yes - Surgical History Surgical History: Yes Surgery Procedure, Year, and Place: Tonsillectomy - Family History Known Family History: Positive: None Negative: Cardiac Disease, Hypertension, Respiratory Disease - Social History Alcohol Use: None Substance Use Type: None Smoking Status (MU): Light Every Day Tobacco Smoker Type: Cigarettes Amount Used/How Often: 5 CIG/DAY Have You Smoked in the Last Year: Yes Review of Systems Constitutional: Fatigue ENT: Sore Throat, Nasal Discharge Respiratory: Cough Cardiovascular: Negative Gastrointestinal: Vomiting, Nausea Musculoskeletal: Arthralgia, Myalgia Neurological: Headache All Other Systems Reviewed And Are Negative: Yes Physical Exam Triage Information Reviewed: Yes Appearance: No Pain Distress, Well-Nourished, Ill-Appearing - MODERATELY Vital Signs: Initial Vital Signs Temp 98.5 F 05/09/18 20:40 Pulse 101 05/09/18 20:40 Resp 18 05/09/18 20:40 BP 147/99 05/09/18 20:40 Pulse Ox 99 05/09/18 20:40 Vital Signs Reviewed: Yes Eyes: Positive: Conjunctiva Clear ENT: Positive: Hearing grossly normal, Pharynx normal, TMs normal Neck: Positive: Supple, Nontender, No Lymphadenopathy Respiratory Exam: Normal Cardiovascular: Positive: Tachycardia Abdomen Description: Positive: Soft Musculoskeletal: Positive: No Edema Neurological: Positive: Alert Psychological: Positive: Age Appropriate Behavior Skin: Negative: rashes UC Diagnostic Evaluation - Laboratory O2 Sat by Pulse Oximetry: 99 Respiratory Course/Dx - Differential Dx/Diagnosis Provider Diagnoses: ACUTE VIRAL SYNDROME Discharge - Sign-Out/Discharge Documenting (check all that apply): Patient Departure All imaging exams completed and their final reports reviewed: No Studies - Discharge Plan Condition: Stable Disposition: HOME Prescriptions: Ondansetron ODT TAB* [Zofran Odt TAB*] 4 mg PO Q6H PRN #20 tab.odt PRN Reason: Nausea/Vomiting Patient Education Materials: Viral Syndrome (ED) Forms: *Work Release Referrals: Troy ULRICH,Abelardo Bowman [Primary Care Provider] - If Needed Additional Instructions: VIRAL SYNDROME: The physician has diagnosed a viral infection. Viruses not only cause "colds," but can cause many different symptoms including generalized aching, fever, headache, cough, diarrhea, nausea, vomiting, and fatigue. The treatment, for the most part, is simply relief of symptoms. This means that antibiotics are usually not given. Rest, fluids, pain medications and, occasionally, medication for the specific symptoms that are most bothersome will be prescribed. Go to the ED if you develop any new or unusual symptoms such as severe headache, stiff neck, high fever, chest pain, productive cough, or shortness of breath. You should be rechecked if you don't see marked improvement within 10 to 14 days. - Billing Disposition and Condition Condition: STABLE Disposition: Home
== END 2018-05-09 21:45 | disposition home or self-care (01) ==
LOC: UCEAST 20:30
DX: B34.9 Viral infection, unspecified (principal); Z88.2 Allergy status to sulfonamides; F17.210 Nicotine dependence, cigarettes, uncomplicated
CPT/HCPCS: 99212; A9270-GY; G0463

== ENCOUNTER → 2018-09-06 19:01 | Emergency (ER) | payer OTHER ==
[2018-09-06 19:16] VITALS: BP 142/98
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
== END | disposition home or self-care (01) ==
LOC: ED 19:01
DX: M54.2 Cervicalgia (principal); M25.521 Pain in right elbow; R20.2 Paresthesia of skin; M54.9 Dorsalgia, unspecified; F17.210 Nicotine dependence, cigarettes, uncomplicated; V89.2XXA Person injured in unspecified motor-vehicle accident, traffic, initial encounter; Y92.9 Unspecified place or not applicable; Z88.2 Allergy status to sulfonamides
CPT/HCPCS: 72110; 72125; 99282

== ENCOUNTER 2019-04-29 18:06 | Emergency (ER) | payer OTHER ==
[2019-04-29] MEDS ORDERED: Ketorolac INJ* 30 MG/ML 1 ML VIAL IM ONE (18:25)
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
[2019-04-29 19:41] VITALS: BP 133/83
== END 2019-04-29 20:00 | disposition home or self-care (01) ==
LOC: UCEAST 18:06
DX: T23.132A Burn of first degree of multiple left fingers (nail), not including thumb, initial encounter (principal); T31.0 Burns involving less than 10% of body surface; X19.XXXA Contact with other heat and hot substances, initial encounter; Y93.9 Activity, unspecified; Y92.89 Other specified places as the place of occurrence of the external cause; Y99.0 Civilian activity done for income or pay; R03.0 Elevated blood-pressure reading, without diagnosis of hypertension; F17.210 Nicotine dependence, cigarettes, uncomplicated; Z88.2 Allergy status to sulfonamides
CPT/HCPCS: 99211; G0463; J1885

== ENCOUNTER 2019-07-06 09:27 | Emergency (ER) | payer OTHER ==
--- OUTSIDE RECORDS SUMMARY | 2019-07-06 09:34 | XMS REPORT | Continuity of Care Document ---
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 Problems Description No Information Available Social History Type Date Description Comments Sex Unknown ETOH Use Denies alcohol use Tobacco Use Start: Unknown Light tobacco smoker (10 or 2 cigarettes/day fewer cigarettes/day) Smoking Status Reviewed: 06/20/19 Light tobacco smoker (10 or 2 cigarettes/ day fewer cigarettes/day) Allergies, Adverse Reactions, Alerts Active Allergies Reaction Severity Comments Date Sulfa 09/14/2018 Medications Active Medications SIG Qnty Indications Ordering Provider Date Nexplanon 68mg 2016 Unknown Implant History Medications Amoxicillin/Clavulanate 1 by mouth 20tabs J01.90 Katerine Hilario 02/08/2019 - Potassium twice a day x CHAPIN Sahu 06/20/2019 875-125mg Tablets 10 days Medrol take dose pack 1units J01.90 Katerine Hilario 02/08/2019 - 4mg TBPK as directed CHAPIN Sahu 06/20/2019 Off Work Please excuse J01.90 Katerine Hilario 02/08/2019 - patient from CHAPIN Sahu 06/20/2019 work today 02/08/19 Immunizations CPT Code Status Date Vaccine Lot # [id number] Given 06/20/2019 Influenza Vac, Quadrivalent, Slit Virus, Im [id number] Given 09/21/2018 Influenza Virus Vaccine, Recombinant Dna, [id number] Hemagglutnin Protein On Vital Signs Date Vital Result Comment 06/20/2019 7:07pm BP Systolic 130 mmHg BP Diastolic 90 mmHg Heart Rate 90 /min Body Temperature 97.9 F Respiratory Rate 12 /min Height 63 inches 5'3" Weight 258.00 lb BMI (Body Mass Index) 45.7 kg/m2 02/08/2019 9:23am BP Systolic 146 mmHg BP Diastolic 94 mmHg Heart Rate 88 /min Body Temperature 98.4 F Respiratory Rate 18 /min Height 63 inches 5'3" Weight 260.00 lb BMI (Body Mass Index) 46.1 kg/m2 Results Description No Information Available Procedures Description No Information Available Medical Devices Description No Information Available Encounters Type Date Location Provider Dx Diagnosis Office Visit 02/08/2019 [facility] Katerine Hilario R03.0 Elevated 9:15a CHAPIN Sahu blood-pressure reading, w/o diagnosis of htn J01.90 Acute sinusitis, unspecified Assessments Date Code Description Provider 06/20/2019 M79.674 Pain in right toe(s) JUJU Carlson 06/20/2019 Z01.84 Encounter for antibody response examination JUJU Carlson 06/20/2019 Z23 Encounter for immunization JUJU Carlson 02/08/2019 R03.0 Elevated blood-pressure reading, without Katerine Sahu NP diagnosis of hypert 02/08/2019 J01.90 Acute sinusitis, unspecified Katerine Sahu NP Plan of Treatment 06/20/2019 - Kera Prather, PAM79.674 Pain in right toe(s)New Xrays:Foot Complete Min 3 Views Right, Ordered: 06/20/19Comments:Check X ray of the right foot/ toes. Switch back to older work shoes or most comfortable shoes. Start diclofenac gel to the area between toes. Use lidocaine spray for discomfort ( buy over the counter) Continue Ibuprofen 600-800 mg 2-3x/day as needed, alternate with tylenol. Rest and ice are important too. 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 Return to see Dr. Newell if no better with above suggestions. Due for physical Sep [address] NewellZ01.84 Encounter for antibody response examinationNew Labs:MMR Screen ([facility] [place]), Ordered: Comments:Check labs for antibody response to MMR Return for lab draw- call to let us know when you can come for lab draw.Z23 Encounter for immunizationComments:You received your flu shot today. Call with any questions or concerns.AllComments:PCMHMedication Management Patient Understands medications he's taking? Yes Are there Barriers to Adherence? No Has the patient been asked about herbal supplements and therapies, and OTC meds ? Yes Care Plan1. Patient has been queried about patient's goals/ preferences and functional/lifestyle goals at relevant visits. Yes If relevant, describe: N/A2. Treatment goals as explained to the patient: above3. Are there barriers to meeting treatment goals? No If Yes, please describe:4. Self-Management goals as described to the patient: Yes As always, we strongly encourage a healthy diet and making physical activity a part of your every day life. If you have questions about how or where to start, please contact the office. Functional Status Description No Information Available Mental Status Description No Information Available Referrals Description No Information Available
[2019-07-06 09:36] VITALS: BP 156/106
--- NOTE | 2019-07-06 09:36 | UC ---
Respiratory Complaint HPI - HPI Summary HPI Summary: Patient is 33 year old female, who present today to the urgent care with sinus congestion for past 3 days. Associated symptoms: Dry cough, postnasal drip. She reports she has history of previous sinus infections and had discussed with her primary care doctor to get evaluated by ENT which she has not done so far. Last episode was in january 2019. No sick contacts . No skin rash. Denies any fever, chills, cough chest pain or shortness of breath . Denies any abdominal pain , nausea or vomiting , diarrhea or constipation. Patient tried over the counter medication without much relief. - History of Current Complaint Stated Complaint: SINUS ISSUE Time Seen by Provider: 07/06/19 09:35 Hx Obtained From: Patient Hx Last Menstrual Period: implant ?: No - Allergies/Home Medications Allergies/Adverse Reactions: Allergies Allergy/AdvReac Type Severity Reaction Status Date / Time Sulfa (Sulfonamide Allergy Anaphylatic Verified 07/06/19 09:36 Antibiotics) Shock PMH/Surg Hx/FS Hx/Imm Hx - Additional Past Medical History Additional PMH: Past Medical History : Sinus infections Past Surgical History: Tonsillectomy Family History : non contributory Social History : No alcohol, bike daily smoker, no drug use. Previously Healthy: Yes - Surgical History Surgical History: Yes Surgery Procedure, Year, and Place: Tonsillectomy - Family History Known Family History: Positive: None, Other, Non-Contributory Negative: Cardiac Disease, Hypertension, Respiratory Disease Family History: dad had colon Ca - Social History Alcohol Use: None Substance Use Type: None Smoking Status (MU): Light Every Day Tobacco Smoker Type: Cigarettes Amount Used/How Often: 5 CIG/DAY Have You Smoked in the Last Year: Yes Review of Systems All Other Systems Reviewed And Are Negative: Yes Constitutional: Positive: Negative Skin: Positive: Negative Eyes: Positive: Negative ENT: Positive: Nasal Discharge, Sinus Congestion, Sinus Pain/Tenderness - She, Other - Postnasal drip. Negative: Sore Throat, Ear Ache Respiratory: Positive: Negative. Negative: Cough Cardiovascular: Positive: Negative Gastrointestinal: Positive: Negative Genitourinary: Positive: Negative Motor: Positive: Negative Neurovascular: Positive: Negative Musculoskeletal: Positive: Negative Neurological: Positive: Negative Psychological: Positive: Negative Is Patient Immunocompromised?: No Physical Exam - Summary Physical Exam Summary: Physical Exam: Const: Appears well. No signs of apparent distress present. Alert and oriented x 3. Musculo: Walks with a normal gait. Head/Face: Atraumatic, normocephalic on inspection. Eyes: EOMI and PERRLA in both eyes. Conjunctivae clear. No discharge noted ENT: Hearing normal, TM normal appearing bilaterally, non bulging , non erythematous . No tenderness on palpation / manipulation of Tragus. No mastoid tenderness. There is swelling and mild erythema over the right maxillary sinus. There is tenderness to palpation on maxillary and frontal sinus, more on the right side than the left Mild pharyngeal erythema without any exudates . Uvula is midline. There is bilateral submandibular lymphadenopathy noted- mild tenderness Respiratory: Respirations are unlabored. Lungs clear to auscultation bilaterally, no wheezing , rhonchi or rales noted . CVS: Regular rate and Rhythm, S1S2 normal , no murmurs identified. Extremities: Peripheral circulation is grossly normal. Pulses 2+ Abdomen : Soft non tender , nondistended , Bowel sounds present . No guarding , rebound tenderness or rigidity noted. Skin: No lesions or rash located on the upper extremities or on the lower extremities. Neuro: Cranial nerves II to XII intact, motor and sensory intact. DTR Intact bilaterally. Mood is normal. Affect is normal. Triage Information Reviewed: Yes Vital Signs Reviewed: Yes Respiratory Course/Dx - Course Course Of Treatment: During the visit today, we discussed the findings consistent with sinusitis . We discussed that mostly sinusitis is viral and respond to conservative management and antibiotics are indicated if symptoms continue beyond 7-10 days .I will prescribe the antibiotics for a delayed referral if no improvement in her symptoms over next 2-3 days or symptoms getting worse. We also discussed that she should follow up with ENT specialist for the consult and further evaluation since this has been recurring. Patient expressed understanding . - Differential Dx/Diagnosis Provider Diagnosis: Sinusitis Discharge ED - Sign-Out/Discharge Documenting (check all that apply): Patient Departure All imaging exams completed and their final reports reviewed: No Studies - Discharge Plan Condition: Stable Disposition: HOME Prescriptions: Amoxicillin/Clavulanate TAB* [Augmentin TAB 875*] 875 mg PO BID 10 Days #20 tab Fluticasone NASAL SPRAY 50MCG* [Flonase NASAL SPRAY 50MCG*] 1 spray BOTH NARES DAILY 7 Days #1 btl Loratadine/Pseudoephedrine [Claritin-D 24 Hour Tablet] 1 each PO DAILY 7 Days # 7 tab.er.24h Patient Education Materials: Sinusitis (ED) Referrals: Frank Schwab MD [Medical Doctor] - 2 Weeks Kiran Newell MD [Primary Care Provider] - 1 Week Additional Instructions: Please start taking the medication as prescribed to the pharmacy- Flonase and Claritin-D I will also prescribe the antibiotics for a delayed referral if no improvement in her symptoms over next 2-3 days or symptoms getting worse. Follow up with your primary care doctor in 1 week . Please follow up with ENT specialist for the consult and further evaluation since this has been recurring. Patients blood pressure slightly high in Urgent care today , plan follow up with PCP for recheck Return to Urgent care / ER if symptoms get worse. - Billing Disposition and Condition Condition: STABLE Disposition: Home
== END 2019-07-06 10:11 | disposition home or self-care (01) ==
LOC: UCEAST 09:27
DX: J32.0 Chronic maxillary sinusitis (principal); F17.210 Nicotine dependence, cigarettes, uncomplicated; Z88.2 Allergy status to sulfonamides
CPT/HCPCS: 99212; G0463

== ENCOUNTER 2019-07-22 11:05 | Emergency (ER) | payer OTHER ==
[2019-07-22 11:11] VITALS: BP 166/114
--- NOTE | 2019-07-22 11:18 | UC ---
Back Pain HPI - HPI Summary HPI Summary: 33 yo female presents with LEFT knee and left lower back pain. She tells me that yesterday she was helping to carry a refrigerator up a flight of stairs. She was behind the fridge using the rosie. The fridge fell and landed on her left knee and she fell backwards hitting her left lower back against the steps. No head injury or LOC. She was ambulatory following. Today has increased pain to these areas and stiffness. She has been taking ibuprofen with little relief. Denies numbness, tingling, saddle anesthesia, dysuria, or loss of bowel/bladder control. - History of Current Complaint Chief Complaint: UCBackPain Stated Complaint: BACK PAIN Time Seen by Provider: 07/22/19 11:17 Hx Obtained From: Patient Hx Last Menstrual Period: neplanon Onset/Duration: Sudden Onset Timing: Constant Severity Initially: Moderate Severity Currently: Severe Pain Intensity: 9 Pain Scale Used: 0-10 Numeric - Allergies/Home Medications Allergies/Adverse Reactions: Allergies Allergy/AdvReac Type Severity Reaction Status Date / Time Sulfa (Sulfonamide Allergy Anaphylatic Verified 07/22/19 11:11 Antibiotics) Shock PMH/Surg Hx/FS Hx/Imm Hx - Additional Past Medical History Additional PMH: None - Surgical History Surgical History: Yes Surgery Procedure, Year, and Place: Tonsillectomy - Family History Known Family History: Positive: Non-Contributory Negative: Cardiac Disease, Hypertension, Respiratory Disease Family History: dad had colon Ca - Social History Occupation: Employed Full-time Lives: With Family Alcohol Use: None Substance Use Type: None Smoking Status (MU): Light Every Day Tobacco Smoker Type: Cigarettes Amount Used/How Often: 5 CIG/DAY Have You Smoked in the Last Year: Yes Review of Systems All Other Systems Reviewed And Are Negative: No Constitutional: Positive: Negative Skin: Positive: Negative Respiratory: Positive: Negative Cardiovascular: Positive: Negative Gastrointestinal: Positive: Negative Neurovascular: Positive: Negative Musculoskeletal: Positive: Other: - Left lower back and left knee pain Neurological: Positive: Negative Psychological: Positive: Negative Physical Exam - Summary Physical Exam Summary: GENERAL: NAD. WDWN. No pain distress. SKIN: Mild ecchymosis 3.5cm diameter to distal lateral left thigh above knee joint. NECK: Supple. FROM. Nontender. No lymphadenopathy. CHEST: CTAB. No r/r/w. No accessory muscle use. Breathing comfortably and in no distress. CV: RRR. Pulses intact. Cap refill <2seconds MSK: TTP over lumbar spine approx L4-L5 and left lumbar paraspinal area. Pain with flexion and extension of spine. Positive SLR on left for low back pain without radiation. Strength 5/5 B/L LEs including dorsiflexion and plantar flexion. FROM B/L LEs. No edema. LEFT KNEE: FROM. NTTP. Strength 5/5. No edema or obvious bony deformities. No patella apprehension. Negative More, A/P drawer, Halle, and varus/valgus stress. NEURO: Alert. Sensations intact B/L LEs L3-S1. Reflexes intact PSYCH: Age appropriate behavior. Triage Information Reviewed: Yes Vital Signs: Initial Vital Signs Temp 98 F 07/22/19 11:07 Pulse 109 07/22/19 11:07 Resp 20 07/22/19 11:07 BP 166/114 07/22/19 11:07 Pulse Ox 100 07/22/19 11:07 Vital Signs Reviewed: Yes Diagnostics - Radiology Knee XR Radiology Interpretation Completed By: Radiologist Summary of Radiographic Findings: IMPRESSION: #. Negative radiographic exam of the LEFT knee. Lumbar XR Radiology Interpretation Completed By: Radiologist Summary of Radiographic Findings: IMPRESSION: MINIMAL DEGENERATIVE DISC DISEASE AT L5-S1. Back Pain Course/Dx - Course Course Of Treatment: XRs as above. Suspect contusions from fall/injury. Advised to continue rest, ice, and ibuprofen as directed. Will rx for flexeril and provider her with a note for work. - Differential Dx/Diagnosis Provider Diagnosis: Left knee pain, Low back pain Discharge ED - Sign-Out/Discharge Documenting (check all that apply): Patient Departure All imaging exams completed and their final reports reviewed: Yes - Discharge Plan Condition: Stable Disposition: HOME Prescriptions: Cyclobenzaprine TAB* [Flexeril 10 MG TAB*] 10 mg PO BID PRN #10 tab PRN Reason: Pain - Mild Patient Education Materials: Acute Low Back Pain (ED), Contusion in Adults (ED) , Lower Back Exercises (ED) Forms: *Work Release Referrals: Kiran Newell MD [Primary Care Provider] - Additional Instructions: If you develop a fever, shortness of breath, chest pain, new or worsening symptoms - please call your PCP or go to the ED immediately. Your blood pressure was high at todays visit. Please see your primary provider within 4 weeks for recheck and re-evaluation. Your X-rays did not show any fractures today. I recommend that you continue to rest, ice, and take ibuprofen as directed for discomfort. Practice gentle range of motion exercises to loosen the muscles. Try taking the flexeril at bedtime as this may make you drowsy - do not drive while taking this medication - Billing Disposition and Condition Condition: STABLE Disposition: Home
== END 2019-07-22 12:06 | disposition home or self-care (01) ==
LOC: UCEAST 11:05
DX: M54.5 Low back pain (principal); M25.562 Pain in left knee; F17.210 Nicotine dependence, cigarettes, uncomplicated; Z88.2 Allergy status to sulfonamides
CPT/HCPCS: 72110; 99212; G0463

== ENCOUNTER 2019-10-16 18:41 | Emergency (ER) | payer OTHER ==
[2019-10-16 20:10] VITALS: BP 148/98
--- NOTE | 2019-10-16 20:10 | UC ---
Throat Pain/Nasal Nguyễn HPI - HPI Summary HPI Summary: 33 yo who awoke with right cheek and right lower eyelid swelling this morning, with persistent discomfort in the cheek, but no fever. Swelling has decreased over the course of the day, and vision is normal. No recent URI, sore throat or nasal congestion, but today she has more congestion and occasional coughing. Has diffuse dental problems, but is seeing a dentist regularly for care and is proceeding with an extraction on the left side soon. States that she had similar infection in the past dx'd as a sinusitis. This was several months ago, and she is uncertain if it was on the same side or not. - History of Current Complaint Chief Complaint: UCGeneralIllness Stated Complaint: SINUS COMPLAINT Time Seen by Provider: 10/16/19 19:59 Hx Obtained From: Patient Hx Last Menstrual Period: neplanon Onset/Duration: Sudden Onset, Lasting Hours Severity: Moderate Pain Intensity: 0 Cough: Nonproductive Associated Signs & Symptoms: Positive: Nasal Discharge - mild. Negative: Dysphagia, Wheezing, Hoarseness - Epiglottits Risk Factors Epiglottis Risk Factors: Negative - Allergies/Home Medications Allergies/Adverse Reactions: Allergies Allergy/AdvReac Type Severity Reaction Status Date / Time Sulfa (Sulfonamide Allergy Anaphylatic Verified 10/16/19 19:53 Antibiotics) Shock Home Medications: Home Medications Amoxicillin/Clavulanate TAB* [Augmentin TAB 875*] 875 mg PO BID #14 tab [Rx] Ibuprofen TAB* [Motrin TAB* 600 MG] 600 mg PO ONCE 10/16/19 [History Confirmed 10/16/19] PMH/Surg Hx/FS Hx/Imm Hx Previously Healthy: Yes - overweight - Surgical History Surgical History: Yes Surgery Procedure, Year, and Place: Tonsillectomy - Family History Known Family History: Positive: None, Other, Non-Contributory Negative: Cardiac Disease, Hypertension, Respiratory Disease Family History: dad had colon Ca - Social History Occupation: Employed Full-time Lives: With Family Alcohol Use: None Substance Use Type: None Smoking Status (MU): Light Every Day Tobacco Smoker Type: Cigarettes Amount Used/How Often: 3 CIG/DAY Have You Smoked in the Last Year: Yes Review of Systems All Other Systems Reviewed And Are Negative: Yes Constitutional: Positive: Fatigue. Negative: Fever Skin: Positive: Other - facial swelling and erythema. Eyes: Negative: Blurred Vision, Diplopia, Photophobia ENT: Positive: Nasal Discharge. Negative: Sore Throat, Ear Ache Respiratory: Positive: Cough. Negative: Shortness Of Breath Cardiovascular: Negative: Palpitations, Chest Pain Gastrointestinal: Positive: Negative Genitourinary: Positive: Negative Motor: Positive: Negative Neurovascular: Positive: Negative Musculoskeletal: Positive: Negative Neurological/Mental Status: Positive: Negative. Negative: Headache Psychological: Positive: Negative Is Patient Immunocompromised?: No Physical Exam Triage Information Reviewed: Yes Appearance: Well-Appearing, Pain Distress - mild Vital Signs: Initial Vital Signs Temp 98.3 F 10/16/19 19:54 Pulse 86 10/16/19 19:54 Resp 16 10/16/19 19:54 BP 148/98 10/16/19 19:54 Pulse Ox 100 10/16/19 19:54 Vital Signs Reviewed: Yes Eye Exam: Other - ARETHA, no photophobia, normal EOM without pain. Eyes: Positive: Conjunctiva Clear ENT: Positive: Pharynx normal Dental Exam: Other - upper partial plate. No obvious abscess. Dental: Negative: Percussion Tenderness @ Neck: Positive: Supple, Nontender Respiratory: Positive: Lungs clear, Normal breath sounds Cardiovascular: Positive: RRR, No Murmur Musculoskeletal Exam: Normal Neurological Exam: Normal Neurological: Positive: Alert, Muscle Tone Normal Psychological Exam: Normal Skin Exam: Other - diffuse right cheek swelling with erythema and tenderness in the cheek lateral to the nose. There is mild induration of the soft tissue of the upper cheek. + erythema of the right lower eyelid. Throat Pain/Nasal Course/Dx - Course Course Of Treatment: augmentin for treatment. - Differential Dx/Diagnosis Differential Diagnosis/HQI/PQRI: Sinusitis, URI, Other - dental abscess, facial cellulitis. Provider Diagnosis: Cellulitis and abscess of face Discharge ED - Sign-Out/Discharge Documenting (check all that apply): Patient Departure All imaging exams completed and their final reports reviewed: No Studies - Discharge Plan Condition: Stable Disposition: HOME Prescriptions: Amoxicillin/Clavulanate TAB* [Augmentin TAB 875*] 875 mg PO BID #14 tab Patient Education Materials: Cellulitis (ED) Referrals: Kiran Newell MD [Primary Care Provider] - Additional Instructions: The source of the infection seems to be the soft tissues of the cheek. Take the full course of antibiotic. You might have simlary eye swelling tomorrow , but it should respond to compressing and ice. If you have increase in facial swelling, fever, or changes in vision such as double vision, please proceed to the emergency room for evaluation. Follow up early next week with Dr. Schwarz to ensure good response to the antibiotic. If you are having recurring infection in the same area, this might need further evaluation. - Billing Disposition and Condition Condition: STABLE Disposition: Home
== END 2019-10-16 21:37 | disposition home or self-care (01) ==
LOC: UCEAST 18:41
DX: L03.211 Cellulitis of face (principal); L02.01 Cutaneous abscess of face; R53.83 Other fatigue; F17.210 Nicotine dependence, cigarettes, uncomplicated; Z88.2 Allergy status to sulfonamides
CPT/HCPCS: 99212; G0463

== ENCOUNTER 2019-11-12 13:08 | Emergency (ER) | payer OTHER ==
[2019-11-12 13:41] VITALS: BP 146/93
--- NOTE | 2019-11-12 13:54 | UC ---
Skin Complaint HPI - HPI Summary HPI Summary: PATIENT WOKE UP THIS MORNING AFTER SLEEPING WITH THE WINDOW OPEN AND NOTICED HER RIGHT CHEEK WAS MILDLY SWOLLEN. ALSO STATES SHE HAS SOME MILD NASAL CONGESTION. NO COUGH, FEVER, SINUS PRESSURE. NO EYE INVOLVEMENT. NO PAIN OR DRAINAGE FROM THE AREA. NO DENTAL PAIN. STATES SHE HAS HAD SIMILAR SYMPTOMS IN THE PAST USUALLY WHEN THE SEASONS ARE CHANGING. LAST EPISODE WAS ABOUT A MONTH AGO. SHE WAS TREATED WITH AUGMENTIN FOR A POSSIBLE INFECTIOUS PROCESS. SYMPTOMS DID IMPROVE AT THAT TIME. - History of Current Complaint Chief Complaint: UCSkin Time Seen by Provider: 11/12/19 13:21 Stated Complaint: SOFT TISUUE COMPLAINT Hx Obtained From: Patient Hx Last Menstrual Period: nexplanon Onset/Duration: Sudden Onset, Lasting Hours, Still Present Timing: Constant Onset Severity: Moderate Current Severity: Moderate Pain Intensity: 5 Pain Scale Used: 0-10 Numeric Location: Face - RIGHT SIDE Character: Swelling Aggravating Factor(s): Nothing Alleviating Factor(s): Nothing Associated Signs & Symptoms: Positive: Negative - Allergy/Home Medications Allergies/Adverse Reactions: Allergies Allergy/AdvReac Type Severity Reaction Status Date / Time Sulfa (Sulfonamide Allergy Anaphylatic Verified 11/12/19 13:20 Antibiotics) Shock Home Medications: Home Medications Fluticasone NASAL SPRAY 50MCG* [Flonase NASAL SPRAY 50MCG*] 2 spray BOTH NARES DAILY #1 btl 11/12/19 [Rx] predniSONE 50 mg TAB [Deltasone 50 mg TAB] 50 mg PO DAILY #5 tab 11/12/19 [Rx] PMH/Surg Hx/FS Hx/Imm Hx - Additional Past Medical History Additional PMH: SEASONAL ALLERGIES - Surgical History Surgical History: Yes Surgery Procedure, Year, and Place: Tonsillectomy - Family History Known Family History: Positive: None, Non-Contributory Negative: Cardiac Disease, Hypertension, Respiratory Disease Family History: dad had colon Ca - Social History Alcohol Use: None Substance Use Type: None Smoking Status (MU): Light Every Day Tobacco Smoker Type: Cigarettes Amount Used/How Often: 2 cig/day Have You Smoked in the Last Year: Yes Review of Systems All Other Systems Reviewed And Are Negative: Yes Constitutional: Positive: Negative Skin: Positive: Other - RIGHT CHEEK SWELLING ENT: Positive: Nasal Discharge Respiratory: Positive: Negative Cardiovascular: Positive: Negative Gastrointestinal: Positive: Negative Physical Exam Triage Information Reviewed: Yes Appearance: Well-Appearing, No Pain Distress, Well-Nourished Vital Signs: Initial Vital Signs Temp 98.6 F 11/12/19 13:20 Pulse 92 11/12/19 13:20 Resp 18 11/12/19 13:20 BP 146/93 11/12/19 13:20 Pulse Ox 100 11/12/19 13:20 Vital Signs Reviewed: Yes Eyes: Positive: Conjunctiva Clear, Other: - PERRL, EOMI. Negative: Discharge ENT: Positive: Hearing grossly normal, Pharynx normal, TMs normal Neck: Positive: Supple, Nontender, No Lymphadenopathy Respiratory: Positive: No respiratory distress, No accessory muscle use Cardiovascular: Positive: Pulses Normal Abdomen Description: Positive: Soft Musculoskeletal: Positive: No Edema Neurological: Positive: Alert Psychological: Positive: Age Appropriate Behavior Skin: Positive: Other - RIGHT CHEEK/NASOLABIAL FOLD MILDLY SWOLLEN. NON TENDER. NO RASH. NO FLUCTUANCE OR INDURATION Course/Dx - Course Course Of Treatment: PATIENT PRESENTS WITH MILD RIGHT-SIDED FACIAL SWELLING ALONG WITH SOME NASAL CONGESTION. DENIES ANY OTHER SYSTEMIC SYMPTOMS. NO PAIN, FEVER, COUGH OR SINUS PRESSURE. STATES SHE HAS HAD SIMILAR SYMPTOMS IN THE PAST USUALLY WHEN THE SEASONS ARE CHANGING. HAS NOT TAKEN HER DAILY ANTIHISTAMINE FOR SEVERAL WEEKS. WAS LAST SEEN FOR THIS ABOUT A MONTH AGO AND GIVEN AUGMENTIN FOR POSSIBLE INFECTIOUS PROCESS. SHE STATES AFTER A FEW DAYS HER SYMPTOMS DID RESOLVE HOWEVER TODAY I AM NOT CONVINCED SHE HAS ANYTHING INFECTIOUS GOING ON. WILL TREAT FOR ALLERGIES WITH SHORT BURST OF PREDNISONE AND FLONASE NASAL SPRAY. ADVISED HER TO RESTART HER DAILY ANTIHISTAMINE AND FOLLOW-UP WITH AN CROP SETTING OUT MACHINE OPERATOR OR AN ENT IF HER SYMPTOMS ARE RECURRENT OR PERSISTENT. TO THE ER WITHOUT FAIL IF SYMPTOMS WORSEN. - Diagnoses Provider Diagnosis: Environmental allergies Discharge ED - Sign-Out/Discharge Documenting (check all that apply): Patient Departure All imaging exams completed and their final reports reviewed: No Studies - Discharge Plan Condition: Stable Disposition: HOME Prescriptions: Fluticasone NASAL SPRAY 50MCG* [Flonase NASAL SPRAY 50MCG*] 2 spray BOTH NARES DAILY #1 btl predniSONE 50 mg TAB [Deltasone 50 mg TAB] 50 mg PO DAILY #5 tab Patient Education Materials: General Allergic Reaction (ED) Referrals: Kiran Newell MD [Primary Care Provider] - If Needed Additional Instructions: YOUR SYMPTOMS MAY BE A MANIFESTATION OF AN ALLERGIC REACTION. LOW SUSPICION FOR INFECTIOUS PROCESS AT THIS TIME. WILL HOLD OFF ON ANY ANTIBIOTICS FOR NOW. RESTART YOUR DAILY ANTIHISTAMINE. TAKE PREDNISONE ONCE DAILY FOR THE NEXT 5 DAYS. FLONASE NASAL SPRAY ONCE DAILY BEFORE BED. SEEK REEVALUATION IF YOU DEVELOP INCREASED FACIAL SWELLING, REDNESS, FEVER OR PAIN. GO TO THE ED WITHOUT FAIL IF YOU DEVELOP ANY RESPIRATORY INVOLVEMENT, TONGUE/ LIP SWELLING, NAUSEA/VOMITING OR ANY OTHER CONCERNING SYMPTOMS. IF YOU HAVE RECURRENT SYMPTOMS CONSIDER EVAL BY AN CROP SETTING OUT MACHINE OPERATOR OR ENT. [facility] [place] Address: [facility] [address], [place] [address] [facility] [address] [place] [address] [place] [address] [facility] [place] D[address]. JIMÉNEZ AND SEAN [address] [facility] [address] [phone] - Billing Disposition and Condition Condition: STABLE Disposition: Home
== END 2019-11-12 14:00 | disposition home or self-care (01) ==
LOC: UCEAST 13:08
DX: J30.2 Other seasonal allergic rhinitis (principal); Z88.2 Allergy status to sulfonamides; F17.210 Nicotine dependence, cigarettes, uncomplicated
CPT/HCPCS: 99212; G0463

== ENCOUNTER 2019-12-11 10:46 | Emergency (ER) | payer OTHER ==
[2019-12-11 11:04] VITALS: BP 131/92
== END 2019-12-11 11:33 | disposition home or self-care (01) ==
LOC: UCEAST 10:46